=== PATIENT | male | born 1945 | race Caucasian/White ===

== ENCOUNTER 2017-09-11 01:26 | Day surgery (SDC) | payer MEDICARE ==
[~2017-09-11] VITALS: Ht 177.8 cm; Wt 103.0 kg
[~2017-09-11 01:26] MED LIST: ACET-1966 PO; ALL300 PO; ASPI-1471 PO; ASPIRIN 81MG PO; ATOR40TA24 PO; CEPH-13 PO; DILT180T PO; ENOX100D5 SQ; FAM20 PO; FAMO20TA28 PO; FOL1 PO; GENTAMICIN(*) 80 MG/2 ML VIAL 160 MG in DEXTROSE 5%(*) 100 ML BAG 100 ML IVPB ONE; GLIP-152 PO; HYDR-2966 PO; HYDR-318 PO; HYDR12.558 PO; IBU800 PO; IBUP-56 PO; LEV500 PO; LIDOCAINE/SOD BICARB 8.4% SYR ID ONE; LIS20 PO; LISI-374 PO; LOPE2CAP88 PO; LOR5 PO; METF-420 PO; MIDAZOLAM 2 MG/2 ML VIAL IVP ONE; NADALOL PO; NADO80TA13 PO; NIA500 PO; NORMOSOL R SOLN(*) 1000 ML BAG 1,000 ML IV PRN; OMEP-153 PO; SIMV-44 PO; SITA100T PO; TERA5CAP59 PO; WARF2TAB81 PO; WARF4TAB54 PO; cefTRIAXone(*) 1 GM VIAL 1 GM in NS(*) 0.9% 100 ML ADDVANT BAG 100 ML IVPB ONE
[2017-09-11] MEDS ORDERED: cefTRIAXone(*) 2 GM VIAL 2 GM in NS(*) 0.9% 100 ML ADDVANT BAG 100 ML IVPB ONE (11:55)
[2017-09-11] MEDS ORDERED: GENTAMICIN(*) 80 MG/2 ML VIAL 160 MG in NS(*) 0.9% 100 ML BAG 100 ML IVPB ONE (11:55)
[2017-09-11 12:24] VITALS: BP 165/96
[2017-09-11 12:31] LABS: PLATELET COUNT, AUTOMATED 173 K/uL (150-450)
--- NOTE | 2017-09-11 12:43 | EKG ---
FACILITY: PATIENT NAME: BEAU PRIETO : [id number] MR: [id number] V: [id number] EXAM DATE: ORDERING PHYSICIAN: NICA ALEMAN TECHNOLOGIST: Kei Nugent Reason : PREOP Blood Pressure : / mmHG Vent. Rate : 049 BPM Atrial Rate : 049 BPM P-R Int : 198 ms QRS Dur : 168 ms QT Int : 516 ms P-R-T Axes : 028 016 -59 degrees QTc Int : 466 ms Marked sinus bradycardia Left bundle branch block Diffuse ST-T findings consistent with bundle branch block Abnormal ECG No previous ECGs available Confirmed by YASIR GUARDADO ([id number]) on 09/11/2017 1:04:59 PM Referred By: Confirmed By:YASIR GUARDADO
[2017-09-11] MEDS ORDERED: NORMOSOL R SOLN(*) 1000 ML BAG 1,000 ML IV PRN (12:55)
[2017-09-11] MEDS ORDERED: MIDAZOLAM 2 MG/2 ML VIAL IVP PRN (12:55)
[2017-09-11] MEDS ORDERED: LIDOCAINE/SOD BICARB 8.4% SYR ID ONE (12:55)
[2017-09-11 12:56] LABS: INR 1.14
[2017-09-11] MEDS ORDERED: DEXAMETHASONE SOD 4 MG/ML VIAL ONE (13:01)
[2017-09-11] MEDS ORDERED: PROPOFOL EMUL(*) 10MG/ML 20 ML 20 ML ONE (13:01)
[2017-09-11] MEDS ORDERED: LIDOCAINE MPF 1% 5 ML VIAL ONE (13:01)
[2017-09-11] MEDS ORDERED: ONDANSETRON 4 MG/2 ML VIAL ONE (13:01)
[2017-09-11] MEDS ORDERED: fentaNYL CITR 100 MCG/2 ML AMP ONE (13:03)
--- NOTE | 2017-09-11 15:03 | RADIOLOGY IMAGING REPORT ---
FACILITY: [facility] - [place] PATIENT NAME: Garrick Guillory : 1945 MR: [id number] V: [id number] EXAM DATE: ORDERING PHYSICIAN: ELIZABETH KIM TECHNOLOGIST: Location: [facility] [place] Patient: Garrick Guillory : 1945 Visit/Account:[id number] Date of Sevice: 09/11/2017 Exam type: PROSTATE BIOPSY History: Prostate biopsy Comparison: None. Findings: The prostate biopsy was performed by Dr. Kim. Sonographic assistance was provided. Please see Dr. Kim's report for complete details. IMPRESSION: 1. As above Report Dictated By: Petty Posadas MD at 09/11/2017 2:58 PM Report E-Signed By: Petty Posadas MD at 09/11/2017 2:58 PM WSN:[email or web address]
[2017-09-11] MEDS ORDERED: HYDR-389 PO (15:30)
[2017-09-11] MEDS ORDERED: LEVO-85 PO (15:32)
[2017-09-11] MEDS ORDERED: FAMO20TA28 PO (15:32)
[2017-09-11 15:50] VITALS: BP 138/72
[2017-09-11 15:59] VITALS: BP 135/90
[2017-09-11 16:00] VITALS: BP 145/79
--- NOTE | 2017-09-11 20:17 | OPERATIVE REPORT 1 ---
EVENT DATE: September 11, 2017 SURGEON: Aroldo Wallis MD ANESTHESIOLOGIST: Logan Lakhani MD ANESTHESIA: General anesthetic. PREOPERATIVE DIAGNOSES 1. Elevated prostate-specific antigen, etiology ? 2. 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 POSTOPERATIVE DIAGNOSES 1. Elevated prostate-specific antigen, etiology ? 2. 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 PROCEDURES PERFORMED 1. Prostate ultrasound. 2. Prostate biopsies times 12 transrectally. 3. Cystourethroscopy. 4. Evacuation of blood clots from the bladder. DESCRIPTION OF PROCEDURE Under general anesthetic, the patient was prepped and draped in the extended lithotomy position. The prostate ultrasound probe was introduced. Scanning of the prostate showed minimal calculi mostly localized to the base of the prostate, left greater than right. No hypoechoic lesions. The prostate measures approximately 116 g. Biopsies from the base, mid, and apical areas of the prostate bilaterally times two for a total of 12 biopsies transrectally. Digital rectal examination revealed minimal blood in the rectal ampulla. The patient was reprepped and draped. A 21 panendoscope was admitted through the urethra to the bladder. Multiple clots were evacuated from the bladder after introduction. Bleeding appeared to be minimal. The prostate showed trilobar hyperplasia with obstruction. The urethra was normal. The verumontanum was normal. No inflammatory polyps of the prostatic urethra. The bladder showed 4+ trabeculation. Trigone and ureteral orifices were normal. No other demonstrable bladder lesions. The bladder was drained. The scope was withdrawn. Digital rectal examination revealed minimal blood in the rectal ampulla. The patient tolerated the procedure satisfactorily and returned to the recovery room in satisfactory condition. This is a 31-year-old white male complaining of elevated prostate-specific antigen of 8.2 in 2018. The patient is known to have an elevated PSA that was biopsied in 2006 and 2008. Biopsies at that time all just showed acute and chronic inflammation. The patient has not followed up with me until recently with an elevated PSA of 8.2. Options were discussed, and he was agreeable to reevaluation with prostate ultrasound and biopsies. That has been accomplished. See operative note for details. The patient will be ready for discharge home when alert and functional. He is to force fluids, 2 L per day. Activities are as tolerated. The patient is to continue his usual medications. The patient will be discharged home on Levaquin, Pepcid, and [place] therapy. The patient is to continue his usual medications. Plan followup the September. He is to call for an appointment. KEVIN
== END 2017-09-11 15:50 | disposition home or self-care (01) ==
LOC: OR 01:26
DX: N41.9 Inflammatory disease of prostate, unspecified (principal); R97.20 Elevated prostate specific antigen [PSA]; N40.0 Benign prostatic hyperplasia without lower urinary tract symptoms; I48.2 Chronic atrial fibrillation
CPT/HCPCS: 36415; 52001; 55700; 76942; 85025; 85610; 88305; 88344; 93005; J1100; J1580; J2001; J2405; J2704; J3010; J7050; 82310; 82374; 82435; 82565; 82947; 84132; 84295; 84520